=== PATIENT | male | born 1955 | race African-American/Black ===

== ENCOUNTER 2017-03-26 20:33 | Emergency (ER) | payer MEDICAID ==
[~2017-03-26] VITALS: Ht 180.3 cm; Wt 100.0 kg
[2017-03-27] MEDS ORDERED: SODIUM CHLORIDE 0.9% 1,000 ML IV ONE (00:37)
[2017-03-27] MEDS ORDERED: ONDANSETRON HCL 4MG/2ML VIAL IV ONE (00:45)
[2017-03-27] MEDS ORDERED: TETANUS, DIPHTHERIA, PERTUSSIS VAC/PF 0.5ML (>7YR OLD) IM ONE (00:45)
[2017-03-27] MEDS ORDERED: KETOROLAC 30MG/ML VIAL IV ONE (00:45)
[2017-03-27] MEDS ORDERED: MORPHINE SULFATE 4 MG/ML CPJ (NOT FOR IM USE) IV ONE (00:45)
[2017-03-27] MEDS ORDERED: IBUPROFEN 600MG TABLET PO ONE (00:45)
[2017-03-27] MEDS ORDERED: LIDOCAINE HCL 1% 20ML VIAL (Pyxis) INJ MC ONE (00:45)
[2017-03-27] MEDS ORDERED: BACITRACIN ZINC OINT UDPKT TOP ONE (00:45)
[2017-03-27] MEDS ORDERED: KETOROLAC 30MG/ML VIAL IM ONE (01:00)
[2017-03-27] MEDS ORDERED: SULFAMETHOXAZOLE/TRIMETHOPRIM 800/160MG TABLET PO ONE (01:30)
[2017-03-27] MEDS ORDERED: CEPHALEXIN 500MG CAPSULE PO ONE (01:30)
[2017-03-27 01:55] VITALS: BP 147/78
== END 2017-03-27 02:15 | disposition home or self-care (01) ==
LOC: ER 21:14
DX: L02.414 Cutaneous abscess of left upper limb (principal); L02.413 Cutaneous abscess of right upper limb; F17.200 Nicotine dependence, unspecified, uncomplicated; F11.10 Opioid abuse, uncomplicated; J44.9 Chronic obstructive pulmonary disease, unspecified; I10 Essential (primary) hypertension; E11.9 Type 2 diabetes mellitus without complications
CPT/HCPCS: 10060; 96372; 99284; J1885; J3490; Z7610; 90715; J7030